=== PATIENT | female | born 1990 | race Caucasian/White ===

== ENCOUNTER 2017-08-25 14:03 | Emergency (ER) | payer OTHER ==
[~2017-08-25 14:03] MED LIST: AUGM875T3 PO; METO25TA3 PO
[2017-08-25 14:14] VITALS: BP 168/100; PULSE 90; RESP 18; TEMP 97.6; O2SAT 99
--- NOTE | 2017-08-25 15:26 | PD ---
HPI Chief Complaint: Injury Time Seen by Provider: 14:59 Travel History International Travel<30 days: No Contact w/Intl Traveler<30days: No Traveled to known affect area: No History of Present Illness HPI 27-year-old approximately 16 week female presents to the emergency room for evaluation of right heel pain. Patient states this morning she was coming down the stairs when her leg gave out and she fell backwards onto her buttocks. While falling, her heel strike against 2 of the concrete steps. States several hours later she developed significant pain and bruising localized to the right heel. Pain is worsened with any range of motion. She took 1000 mg Tylenol without any relief in symptoms. She denies any other injuries. Patient has history of hypertension for which she takes metoprolol twice daily since 2012. Her [employer] is aware. Patient states her hypertension is usually well controlled with medication. Patient denies any vaginal bleeding , abdominal pain, or abdominal cramping. PFSH Past Medical History Hypertension: Yes ?: LMP: 16 weeks Social History Alcohol Use: No Tobacco Use: No Substance Use: No Allergies-Medications (Allergen,Severity, Reaction): Coded Allergies: No Known Allergies (Verified Adverse Reaction, Unknown, 08/25/17) Reported Meds & Prescriptions Reported Meds & Active Scripts Active Augmentin (Amoxicillin-Clavulanate) 875-125 Mg Tab 1 Tab PO BID 10 Days Metoprolol Tartrate 25 Mg Tab 25 Mg PO BID Review of Systems Except as stated in HPI: all other systems reviewed are Neg Physical Exam Narrative GENERAL: Well-nourished, well-developed female no acute distress. Afebrile. Ambulatory. SKIN: Focused skin assessment warm/dry. Moderate ecchymosis over the right posterior heel. HEAD: Normocephalic. EYES: No scleral icterus. No injection or drainage. NECK: Supple, trachea midline. No JVD or lymphadenopathy. CARDIOVASCULAR: Regular rate and rhythm without murmurs, gallops, or rubs. RESPIRATORY: Breath sounds equal bilaterally. No accessory muscle use. MUSCULOSKELETAL: No cyanosis. Moderate edema of the right foot. Extreme tenderness to palpation especially over the heel. 2+ dorsalis pedis pulse. Full range of motion of the foot. Negative Ruggiero test. Data Data Last Documented VS Vital Signs Date Time Temp Pulse Resp B/P (MAP) Pulse Ox O2 Delivery O2 Flow Rate FiO2 08/25/17 14:14 97.6 90 18 168/100 (122) 99 Orders Orders Urinalysis - C+S If Indicated (08/25/17 15:21) Foot, Heel Only ([id number]) (08/25/17 ) Ed Discharge Order (08/25/17 15:51) Josue Bandage (08/25/17 15:51) Labs Laboratory Tests Test 08/25/17 15:30 Urine Color LIGHT-YELLOW Urine Turbidity HAZY Urine pH 7.5 Urine Specific [place] 1.008 Urine Protein NEG mg/dL Urine Glucose (UA) NEG mg/dL Urine Ketones NEG mg/dL Urine Occult Blood NEG Urine Nitrite NEG Urine Bilirubin NEG Urine Urobilinogen LESS THAN 2.0 MG/DL Urine Leukocyte Esterase SMALL Urine RBC 2 /hpf Urine WBC 2 /hpf Urine Squamous Epithelial Cells 9 /hpf Urine Bacteria RARE /hpf Microscopic Urinalysis Comment CULT NOT INDICATED MDM Medical Decision Making Medical Screen Exam Complete: Yes Emergency Medical Condition: Yes Medical Record Reviewed: Yes Differential Diagnosis Fracture, sprain, strain, contusion, dislocation Narrative Course 27-year-old 16 week female presents to the emergency room for evaluation of right heel pain after mechanical fall earlier today. She denies any trauma to her abdomen, abdominal pain, cramping, or vaginal bleeding. Patient has been ambulatory but reports significant pain especially around the right posterior heel. She has associated edema and ecchymosis. Physical exam is reassuring. Negative Ruggiero test. Right lower extremity is neurovascularly intact with 2+ dorsalis pedis pulse. I spoke to my attending physician, Dr. Roy, who recommends shielding the patient's abdomen and performing x-ray. X-ray is negative. This is contusion. Patient was reassured. Placed in Josue wrap. She was noted to be hypertensive. Patient has history of hypertension and is compliant with her twice daily metoprolol. Her [employer] is aware. States typically her blood pressure is very well controlled. I suspect it is elevated because of pain/white coat syndrome. UA was performed to evaluate for proteinuria. It is negative for protein but does show bacteria. Patient will be treated empirically for a symptomatically bacteriuria with Macrobid. Told to follow-up with her [employer] this week for blood pressure recheck or return for worsening symptoms. She understands and agrees to plan. Diagnosis Primary Impression: Contusion of right heel Qualified Codes: S90.31XA - Contusion of right foot, initial encounter Additional Impression: Bacteriuria, asymptomatic Referrals: Primary Care Physician Additional Instructions: Rest and drink plenty of fluids. Macrobid as directed, until compared Take Tylenol as directed, as needed for pain. Apply ice to the affected area for 20 minutes at a time, as needed for pain and swelling. Follow-up with your [employer] this week for blood pressure recheck. Return to the emergency room for worsening symptoms. Med/Other Pt SpecificInfo: Prescription(s) given Scripts Nitrofurantoin Monohydrate Macrocrystals (Macrobid) 100 Mg Capsule 100 MG PO BID for Infection for 7 Days, #14 CAP 0 Refills Prov: Conrado Roy MD 08/25/17 Disposition: 01 DISCHARGE HOME Condition: Stable Emelia Orellana Aug 25, 2017 15:26
--- NOTE | 2017-08-25 15:44 | RADRPT ---
EXAM DATE/TIME: 08/25/2017 15:37 [facility] COMPARISON: No previous studies available for comparison. INDICATIONS : Right calcaneus pain post fall one day ago MEDICAL HISTORY : None. SURGICAL HISTORY : None. ENCOUNTER: Initial ACUITY: 1 day PAIN SCORE: 8/10 LOCATION: Right plantar surface of calcaneous FINDINGS: Two view examination of the right heel demonstrates the trabecula to be intact with no evidence of fr acture. There is a normal calcaneal angle. The soft tissues are of normal thickness. CONCLUSION: Unremarkable examination of the right heel. Cristhian Bundy MD on August 25, 2017 at 15:41 Board Certified Radiologist. This report was verified electronically.
[2017-08-25 15:46] LABS: BACTERIA, URINE RARE /hpf; BILIRUBIN, URINE NEG (NEG); BLOOD, URINE NEG (NEG); GLUCOSE,URINE NEG (NEG); KETONE, URINE NEG (NEG); NITRITE,URINE NEG (NEG); PH, URINE 7.5 (5.0-8.5); SQUAMOUS EPITHELIAL CELL URINE 9 /hpf (0-5); URINE COLOR LIGHT-YELLOW (YELLW/STRAW); URINE LEUKOCYTE ESTERASE SMALL (NEG)
[2017-08-25] MEDS ORDERED: MACR100C2 PO (15:52)
== END 2017-08-25 16:05 | disposition home or self-care (01) ==
LOC: NEPK 14:03
DX: O99.89 Other specified diseases and conditions complicating pregnancy, childbirth and the puerperium (principal); S90.31XA Contusion of right foot, initial encounter; W10.9XXA Fall (on) (from) unspecified stairs and steps, initial encounter; O26.892 Other specified pregnancy related conditions, second trimester; R82.71 Bacteriuria; O10.912 Unspecified pre-existing hypertension complicating pregnancy, second trimester; Z3A.16 16 weeks gestation of pregnancy
CPT/HCPCS: 73650; 81001; 99284